=== PATIENT | female | born 1950 | race Caucasian/White ===

== ENCOUNTER 2017-11-07 11:07 | Inpatient (IN) | payer OTHER, MEDICAID, MEDICARE ==
[~2017-11-07] VITALS: Ht 162.6 cm; Wt 68.0 kg
[~2017-11-07 11:07] MED LIST: ACCU40TA PO; ALLO300T2 PO; ATOR40TA16 PO; LEVO.075 PO; PROZ40CA PO; VERA1TAB17 PO
[2017-11-07] MEDS ORDERED: GLYCOPYRROLATE 1 MG/5 ML SYRINGE IV PUSH ONE (12:00)
[2017-11-07] MEDS ORDERED: PROPOFOL 200 MG/20 ML AMP IV ONE (12:00)
[2017-11-07] MEDS ORDERED: PHENYLEPH/NS 1000 MCG/10 ML SYR IV ONE (12:00)
[2017-11-07] MEDS ORDERED: ONDANSETRON HCL 4 MG/2 ML VIAL IV ONE (12:00)
[2017-11-07] MEDS ORDERED: NEOSTIGMINE 5 MG/5 ML SYRINGE IV PUSH ONE (12:00)
[2017-11-07] MEDS ORDERED: LIDOCAINE HCL 1% PF 5 ML SYRINGE OTHER ONE (12:00)
[2017-11-07] MEDS ORDERED: DEXAMETHASONE SOD PHOS 4 MG/ML VIAL IV ONE (12:00)
[2017-11-07] MEDS ORDERED: ePHEDrine/NS 25 MG/5 ML SYRINGE IV ONE (12:00)
[2017-11-07] MEDS ORDERED: SODIUM CHLORIDE 0.9% 10 ML VIAL IV ONE (12:00)
[2017-11-07] MEDS ORDERED: VECURONIUM BROMIDE 20 MG VIAL IV ONE (12:00)
[2017-11-07] MEDS ORDERED: ROCURONIUM INJ 50 MG/5 ML SYRINGE IV PUSH ONE (12:00)
[2017-11-07] MEDS ORDERED: NORMOSOL R INJ 2,000 ML IV ONE (12:00)
[2017-11-07] MEDS ORDERED: POVIDONE IODINE 5% (ANTISEPSIS KIT) 4 APPLICATIONS EACH NARE PRN (12:15)
[2017-11-07] MEDS ORDERED: METOPROLOL TARTRATE 25 MG TAB PO PRN (12:15)
[2017-11-07] MEDS ORDERED: SODIUM CHLORID 0.9% 500 ML IV PRN (12:15)
[2017-11-07] MEDS ORDERED: CHLORHEXIDINE GLUCONATE 2 % 1 PACK (2 CLOTHS) TOPICAL PRN (12:15)
[2017-11-07] MEDS ORDERED: LACTATED RINGER'S 1000 ML IV PRN (12:15)
[2017-11-07] MEDS ORDERED: ceFAZolin 2 GM PREMIX 50 ML IV SCH (12:30)
[2017-11-07 13:10] LABS: PROTHROMBIN TIME - PATIENT 10.5 SEC (9.8-11.6)
[2017-11-07] MEDS ORDERED: FAMOTIDINE 20 MG/2 ML VIAL ONE (13:41)
[2017-11-07] MEDS ORDERED: ACETAMINOPHEN 1000 MG/100 ML 0 ML IV ONE (13:41)
[2017-11-07] MEDS ORDERED: FUROSEMIDE 40 MG/4 ML VIAL ONE ×2 (13:56→19:16)
--- NOTE | 2017-11-07 17:14 | EKG ---
Date Performed: 11/07/2017 Time Performed: 12:48:53 PTAGE: 66 years EKG: Sinus rhythm PREVIOUS TRACING : 03/01/2016 18.53 Since the previous tracing, no significant change not ed DOCTOR: Tj Talavera Interpretating Date/Time 11/07/2017 17:13:54
[2017-11-07] MEDS ORDERED: MORPHINE SULFATE 4 MG/ML INJ IV PUSH PRN (18:30)
[2017-11-07] MEDS ORDERED: SUGAMMADEX SODIUM 200 MG/2 ML VIAL IV PUSH ONE (18:47)
[2017-11-07] MEDS ORDERED: DO NOT ADM ANY ANTICOAGULANT DRUGS PRN (19:08)
[2017-11-07] MEDS ORDERED: MIDAZOLAM HCL 2 MG/2 ML VIAL ONE (19:17)
[2017-11-07] MEDS ORDERED: ONDANSETRON HCL 4 MG/2 ML VIAL ONE (19:17)
[2017-11-07] MEDS ORDERED: *morphine SULFATE 4 MG/ML PERIprocedure ONLY ONE ×2 (19:18→20:02)
[2017-11-07 19:39] LABS: AUTOMATED NEUTROPHIL # 18.9 TH/MM3 (1.8-7.7); BASOPHIL # 0.1 TH/MM3 (0-0.2); BASOPHIL % 0.3 % (0.0-2.0); EOSINOPHIL # 0.1 TH/MM3 (0-0.4); EOSINOPHIL % 0.5 % (0.0-4.0); HEMOGLOBIN 12.1 GM/DL (11.6-15.3); LYMPH % 5.9 % (9.0-44.0); LYMPHOCYTE # 1.2 TH/MM3 (1.0-4.8); MEAN CELL VOLUME 96.7 FL (80.0-100.0); MEAN CORPUSCULAR HEMOGLOBIN 31.5 PG (27.0-34.0); MEAN CORPUSCULAR HGB CONC 32.6 % (32.0-36.0); MEAN PLATELET VOLUME 7.2 FL (7.0-11.0); MONO % 2.8 % (0.0-8.0); MONOCYTE # 0.6 TH/MM3 (0-0.9); NEUT % 90.5 % (16.0-70.0); PLATELET COUNT 277 TH/MM3 (150-450); RED BLOOD COUNT 3.83 MIL/MM3 (4.00-5.30); RED CELL DISTRIBUTION WIDTH 15.5 % (11.6-17.2); WHITE BLOOD COUNT 20.9 TH/MM3 (4.0-11.0)
[2017-11-07] MEDS ORDERED: PROMETHAZINE INJ 25 MG/ML VIAL ONE (19:39)
[2017-11-07] MEDS ORDERED: LORazepam 2 MG/ML VIAL ONE (19:46)
--- NOTE | 2017-11-07 19:49 | RADRPT ---
EXAM DATE: 11/07/2017 7:29 PM EDT AGE/SEX: 66 years / Female INDICATIONS: Central line placement. CLINICAL DATA: This is the patient's subsequent encounter. Patient reports that signs and symptoms h ave been present for 1 week and indicates a pain score of Nonresponsive. MEDICAL/SURGICAL HISTORY: Hypertension. Non-responsive. COMPARISON: [facility], CHEST SINGLE AP, 03/01/2016. . FINDINGS: A right jugular line is noted and the tip overlies the expected location of the right atrium. There i s streaky infiltrate in the left lower lobe. I do not see a pneumothorax. Patchy lucency overlying th e right chest soft tissues may be related to subcutaneous air or artifact external to the patient. CONCLUSION: Subcutaneous air versus artifact external to the patient overlies the right upper quadrant/lateral th oracic soft tissues. I do not see a pneumothorax. Patchy left lower lobe infiltrate or atelectasis. Electronically signed by: Avery Malik MD 11/07/2017 7:47 PM EDT
[2017-11-07 20:00] LABS: BICARBONATE 17.3 MEQ/L (21.0-32.0); CALCIUM 8.7 MG/DL (8.5-10.1); CREATININE 2.55 MG/DL (0.50-1.00)
[2017-11-07] MEDS: SODIUM CHLOR 0.9% 1000 ML INJ 1,000 ML IV SCH (20:00)
[2017-11-07] MEDS ORDERED: LORazepam 2 MG/ML VIAL IV ONE (20:00)
[2017-11-07] MEDS: PANTOPRAZOLE SODIUM 40 MG VIAL IV PUSH SCH (20:18)
[2017-11-07] MEDS ORDERED: SODIUM CHLOR 0.9% 1000 ML INJ 1,000 ML IV ONE (21:00)
[2017-11-07 22:10] VITALS: BP 130/62; PULSE 84; RESP 20; TEMP 97.4; O2SAT 95
[2017-11-07] MEDS: DOCUSATE SODIUM 100 MG CAP PO SCH (22:30)
[2017-11-08] VITALS: BP 110/58; PULSE 93; RESP 20; TEMP 97.7; O2SAT 97
[2017-11-08] MEDS: SODIUM CHLOR 0.9% 1000 ML INJ 1,000 ML IV SCH ×4 (01:10→18:33)
[2017-11-08] MEDS: MORPHINE SULFATE 4 MG/ML INJ IV PUSH PRN ×4 (03:30→18:34)
[2017-11-08] MEDS: LEVOTHYROXINE SODIUM 75 MCG TAB PO SCH (04:37)
[2017-11-08 05:02] VITALS: BP 130/53; PULSE 82; RESP 18; TEMP 98.2; O2SAT 98
[2017-11-08] MEDS ORDERED: SODIUM CHLOR 0.9% 1000 ML INJ 1,000 ML IV ONE (06:45)
[2017-11-08 08:00] VITALS: BP 127/61; PULSE 91; RESP 17; TEMP 98; O2SAT 95
[2017-11-08] MEDS ORDERED: ALLOPURINOL 300 MG TAB PO SCH (09:00)
[2017-11-08] MEDS: ATORVASTATIN 40 MG TAB PO SCH (09:24)
[2017-11-08] MEDS: DOCUSATE SODIUM 100 MG CAP PO SCH ×2 (09:24→19:56)
[2017-11-08] MEDS: FLUoxetine HCL 20 MG CAP PO SCH (09:24)
[2017-11-08] MEDS: VERAPAMIL HCL 240 MG SUSTAINED RELEASE TAB PO SCH (09:25)
[2017-11-08] MEDS: LISINOPRIL 20 MG TAB PO SCH (09:25)
[2017-11-08 10:48] LABS: HEMATOCRIT 32.8 % (35.0-46.0); HEMOGLOBIN 10.6 GM/DL (11.6-15.3); MEAN CELL VOLUME 98.8 FL (80.0-100.0); MEAN CORPUSCULAR HEMOGLOBIN 31.8 PG (27.0-34.0); MEAN CORPUSCULAR HGB CONC 32.2 % (32.0-36.0); MEAN PLATELET VOLUME 7.7 FL (7.0-11.0); PLATELET COUNT 219 TH/MM3 (150-450); RED BLOOD COUNT 3.32 MIL/MM3 (4.00-5.30); RED CELL DISTRIBUTION WIDTH 16.2 % (11.6-17.2); WHITE BLOOD COUNT 15.1 TH/MM3 (4.0-11.0)
[2017-11-08 11:42] LABS: BICARBONATE 18.9 MEQ/L (21.0-32.0); CALCIUM 7.6 MG/DL (8.5-10.1); CREATININE 2.97 MG/DL (0.50-1.00)
[2017-11-08 12:00] VITALS: BP 112/56; PULSE 91; RESP 18; TEMP 97.8; O2SAT 98
--- NOTE | 2017-11-08 12:16 | HHI.PR ---
Subjective Patient symptoms today pt was seen at the bedside today. POD#1 s/p right robotic radical nephrectomy. No acute events overnight. VS are stable as well as labs, Naomi is managed well with pain meds, she does have right sided abd pain ecpecially when moves and cought which is understandable post surgery. On Clear liquid diet, tolerates it well Objective Vital Signs Vital Signs Date Time Temp Pulse Resp B/P (MAP) Pulse Ox O2 Delivery O2 Flow Rate FiO2 11/08/17 08:00 98.0 91 17 127/61 (83) 95 11/08/17 05:02 98.2 82 18 130/53 (78) 98 11/08/17 03:35 20 11/08/17 00:00 97.7 93 20 110/58 (75) 97 11/07/17 22:10 97.4 84 20 130/62 (84) 95 11/07/17 21:00 81 19 127/60 (82) 95 Nasal Cannula 3 11/07/17 20:30 80 21 128/58 (81) 97 Nasal Cannula 3 11/07/17 20:00 97.9 77 24 138/61 (86) 95 Nasal Cannula 3 11/07/17 19:45 75 25 143/67 (92) 97 Nasal Cannula 3 11/07/17 19:30 73 24 141/63 (89) 98 Nasal Cannula 3 11/07/17 19:15 74 20 136/62 (86) 100 Nasal Cannula 3 146/54 (84) 11/07/17 19:06 97.6 79 20 127/59 (81) 92 Nasal Cannula 3 160/58 (92) Intake & Output 11/08/17 11/08/17 07:00 19:00 Intake Total 2300 ml Output Total 270 ml Balance 2030 ml Intake Oral 0 ml IV Total 2300 ml Output Urine Total 270 ml Result Diagram: 11/08/17 0955 11/08/17 0955 Objective Remarks NAD RRR Clear lungs Abd soft, slightly distended post/op. mild tenderness on a right. Incisions healing well Stout is in place draining well clear yellow urine Medications and IVs Current Medications Medications (Trade) Dose Ordered Sig/Teressa Route Start Time Stop Time Status Last Admin Lactated Ringer's 1,000 ml @ 30 mls/hr Q24H PRN IV 11/07/17 12:15 11/10/17 12:14 11/07/17 13:17 Sodium Chloride 500 ml @ 30 mls/hr [id number] PRN IV 11/07/17 12:15 11/10/17 12:14 (Lopressor) 25 mg CALL CENTER TEAM LEADER PRN PO 11/07/17 12:15 11/10/17 12:14 (Betadine 5% Antisepsis Kit) 1 applic [employer] C[employer] TE[employer] LEADER PRN EACH NARE 11/07/17 12:15 11/10/17 12:14 11/07/17 13:17 (Chlorhexidine 2% Cloth) 3 pack [employer] C[employer] TE[employer] LEADER PRN TOPICAL 11/07/17 12:15 11/10/17 12:14 11/07/17 13:17 Cefazolin Sodium/ Dextrose 50 ml @ 150 mls/hr CALL C[employer] TE[employer] LEADER IV 11/07/17 12:30 11/10/17 12:29 11/07/17 15:11 (Colace) 100 mg BID PO 11/07/17 21:00 11/08/17 09:24 (Zofran Odt) 4 mg Q6HR PRN SL 11/07/17 18:30 (Protonix Inj) 40 mg Q24H IV PUSH 11/07/17 19:00 11/07/17 20:18 Cefazolin Sodium 1000 mg/Sodium Chloride 100 ml @ 200 mls/hr Q8H IV 11/07/17 23:00 11/08/17 05:59 Sodium Chloride 1,000 ml @ 150 mls/hr Q6H40M IV 11/07/17 18:30 11/08/17 01:10 (Lipitor) 40 mg DAILY PO 11/08/17 09:00 11/08/17 09:24 (Synthroid) 75 mcg DAILY@0600 PO 11/08/17 06:00 11/08/17 04:37 (Prinivil) 40 mg DAILY PO 11/08/17 09:00 11/08/17 09:25 (Isoptin Sr) 240 mg DAILY PO 11/08/17 09:00 11/08/17 09:25 (PROzac) 40 mg DAILY PO 11/08/17 09:00 11/08/17 09:24 ([facility] Nursing Information) ALL NURSING DEPARTME... UNSCH PRN .XX 11/07/17 19:08 11/08/17 19:07 (Morphine Inj) 4 mg Q3H PRN IV PUSH 11/07/17 21:15 11/08/17 09:24 (Zyloprim) 200 mg DAILY PO 11/09/17 09:00 Assessment and Plan Assessment and Plan 66y.o F s/p Rt robotic radical nephrectomy yesterday - Continue current management - Labs at AM - Pain control prn - OOB to chair / ambulate with assistance - Keep stout in, monitor I&O - IS when in bed - Possibly advance diet tomorrow Discharge Planning pending Drake Zealya Nov 08, 2017 12:16
[2017-11-08 16:00] VITALS: BP 120/59; PULSE 88; RESP 18; TEMP 97.6; O2SAT 95
[2017-11-08] MEDS: PANTOPRAZOLE SODIUM 40 MG VIAL IV PUSH SCH (18:34)
[2017-11-08 20:00] VITALS: BP 109/50; PULSE 95; RESP 17; TEMP 97.9; O2SAT 95
[2017-11-09] VITALS: BP 100/58; PULSE 89; RESP 17; TEMP 97.2; O2SAT 95
[2017-11-09] MEDS: SODIUM CHLOR 0.9% 1000 ML INJ 1,000 ML IV SCH ×4 (00:55→20:49)
[2017-11-09] MEDS: MORPHINE SULFATE 4 MG/ML INJ IV PUSH PRN ×3 (00:55→17:57)
[2017-11-09] MEDS ORDERED: ceFAZolin 500 MG/NS 100 ML IV SCH ×2 (03:00)
[2017-11-09] MEDS: LEVOTHYROXINE SODIUM 75 MCG TAB PO SCH (04:25)
[2017-11-09 04:56] LABS: AUTOMATED NEUTROPHIL # 9.2 TH/MM3 (1.8-7.7); BASOPHIL % 0.2 % (0.0-2.0); EOSINOPHIL # 0.1 TH/MM3 (0-0.4); EOSINOPHIL % 1.1 % (0.0-4.0); HEMOGLOBIN 9.6 GM/DL (11.6-15.3); LYMPH % 15.8 % (9.0-44.0); MEAN CELL VOLUME 98.8 FL (80.0-100.0); MEAN CORPUSCULAR HEMOGLOBIN 32.6 PG (27.0-34.0); MEAN PLATELET VOLUME 7.7 FL (7.0-11.0); MONO % 11.9 % (0.0-8.0); MONOCYTE # 1.5 TH/MM3 (0-0.9); PLATELET COUNT 188 TH/MM3 (150-450); RED BLOOD COUNT 2.93 MIL/MM3 (4.00-5.30); RED CELL DISTRIBUTION WIDTH 15.8 % (11.6-17.2); WHITE BLOOD COUNT 12.9 TH/MM3 (4.0-11.0)
[2017-11-09 05:33] LABS: BICARBONATE 17.4 MEQ/L (21.0-32.0); CALCIUM 7.2 MG/DL (8.5-10.1); CREATININE 3.37 MG/DL (0.50-1.00)
[2017-11-09 05:53] LABS: TOTAL PROTEIN 5.6 GM/DL (6.4-8.2)
[2017-11-09 08:00] VITALS: BP 117/63; PULSE 81; RESP 17; TEMP 97.2; O2SAT 95
[2017-11-09] MEDS: LISINOPRIL 20 MG TAB PO SCH (11:02)
[2017-11-09] MEDS: ATORVASTATIN 40 MG TAB PO SCH (11:03)
[2017-11-09] MEDS: ALLOPURINOL 100 MG TAB PO SCH (11:03)
[2017-11-09] MEDS: FLUoxetine HCL 20 MG CAP PO SCH (11:03)
[2017-11-09] MEDS: VERAPAMIL HCL 240 MG SUSTAINED RELEASE TAB PO SCH (11:03)
[2017-11-09] MEDS: DOCUSATE SODIUM 100 MG CAP PO SCH ×2 (11:03→20:48)
[2017-11-09 12:00] VITALS: BP 128/59; PULSE 83; RESP 17; TEMP 97.7; O2SAT 95
--- NOTE | 2017-11-09 12:14 | MP ---
cc: Enoc Garcia MD DATE OF OPERATION: 11/07/2017 PREOPERATIVE DIAGNOSES: 1. Right 5 cm solid renal mass. 2. Right renal cyst. POSTOPERATIVE DIAGNOSES: 1. Right 5 cm solid renal mass. 2. Right renal cyst. PROCEDURE PERFORMED: Robotic-assisted laparoscopic right radical nephrectomy. SURGEON: Enoc Garcia MD ANESTHESIA: General. COMPLICATIONS: None. PREOPERATIVE ANTIBIOTICS: Ancef 2 grams IV. DRAINS: Andrea catheter. ESTIMATED BLOOD LOSS: 100 mL. FLUIDS: 1500 mL crystalloids. SPECIMENS: Right kidney. DISPOSITION: Stable to recovery room. INDICATION FOR PROCEDURE: The patient is a 66-year-old female with history of hypertension, who was found to have a 5 cm solid renal mass incidentally on her right kidney. She denied any symptoms at this time. Metastatic workup was negative. Treatment options were discussed and she elected to proceed with removal of her right kidney laparoscopically. After risks, benefits and alternatives were explained to the patient, including the anesthetic risks, risk of renal failure, dialysis, hernia, among others, she elected to proceed and informed consent was obtained. DETAILS OF PROCEDURE: The patient was properly identified, brought back to the operating room and placed supine on the operating table. Appropriate timeout was performed. Under direction of Anesthesiology, the patient was intubated and induced under general anesthetic. Preoperative antibiotics in the form of Ancef 2 grams IV were given 4 hours prior to the procedure. The patient was then placed in the left lateral decubitus position with right side up. All pressure points were padded. Prior to positioning, she did have a 16-Ukrainian Andrea catheter placed. At this time, she was then prepped and draped in normal sterile surgical fashion. Stab incision was made superior and lateral to the umbilicus on the patient's right-hand side. A Veress needle was then used to gain insufflation into the abdominal cavity. At this time, under direct visualization, I carefully passed the 12 mm long camera port with the 10-mm 0-degree laparoscopic port into the patient's abdominal cavity. The abdominal cavity was inspected. There were some adhesions in the anterior abdominal wall up by the liver due to her prior laparoscopic cholecystectomy procedure years ago. No evidence of any intra-abdominal injury was seen. At this time, the lower 8 mm robotic port was then placed under direct visualization, triangulated off of the camera port and approximately a handbreadth off of the ASIS. At this time, using laparoscopic scissors, I then took down the anterior abdominal adhesions with both a combination of blunt dissection and electrocautery. Once the adhesions were taken down, I then was able to place my other 8 mm robotic port 2 fingerbreadths below the subcostal margin. A 5 mm liver retractor port was then placed along the midline as well as two 12 mm materials assistant ports in the midline superior and inferior to the umbilicus. These were all placed under direct visualization. At this time, the robot was then brought into position and docked. I began by taking down the white line of Toldt from the colon, reflecting the colon medially. This exposed the retroperitoneum. I then kocherized the duodenum. At this time, the plane between the gonadal vein and IVC was easily identified. I then retracted the kidney towards the anterior abdominal wall and marched up the IVC to the insertion of the right gonadal vein. This was carefully dissected out circumferentially and taken with the robotic vessel sealer. I then continue to follow the IVC up cephalad until I came across the hilum. The patient had 1 single artery and vein. Each was taken separately with an endovascular GI stapler. The lateral and superior attachments were divided and removed. At this point, all that remained was the lower pole portion with the ureter intact. This was then divided with the robotic vessel sealer as well. At this point, the kidney was completely mobilized, it was then placed in the right colic gutter. The renal fossa and adrenal bed was carefully inspected. Electrocautery was then used to obtain hemostasis. Pressure in the abdomen was brought down to 7 mmHg. No evidence of any bleeding was seen. The liver appeared to be intact as well. Three grams of Juliet were then used for hemostatic purposes. The kidney was then placed in EndoCatch bag for later extraction. It was extracted through the right lower quadrant incision. It was closed in 2 layers with the peritoneum being closed with a 3-0 Vicryl and the fascia being closed with a 1-0 PDS. A second look was performed. The incision was free of bowel. No bleeding was seen. All ports were removed under direct visualization. Incisions were closed with 4-0 Monocryl and Dermabond. The patient was extubated and sent to recovery room in stable condition. She will be transferred to the floor for routine postoperative care. Sponge, needle and instrument count was correct at the end of the case. MD HERMAN Crouch/JEN , 11:13 AM , 12:12 PM
--- NOTE | 2017-11-09 13:46 | HHI.PR ---
Subjective Patient symptoms today Pt was seen at her room today. Sitting comfortably in chair. She had some soreness/pain at her abd overnight but mostly related to moving or coughing. no fever, occasionally has nausea, no BM yet, no flatus but admits burping and acid reflux. White count improving. Cr is trending up but her baseline is 1.9 and she is slightly dry post/op so currently on IV fluids 150ml/hr. Tolerates clear diet well. Objective Vital Signs Vital Signs Date Time Temp Pulse Resp B/P (MAP) Pulse Ox O2 Delivery O2 Flow Rate FiO2 11/09/17 12:00 97.7 83 17 128/59 (82) 95 11/09/17 08:00 97.2 81 17 117/63 (81) 95 11/09/17 00:00 97.2 89 17 100/58 (72) 95 11/08/17 20:00 97.9 95 17 109/50 (69) 95 11/08/17 16:00 97.6 88 18 120/59 (79) 95 Intake & Output 11/09/17 11/09/17 07:00 19:00 Intake Total 1340 ml Output Total 640 ml Balance 700 ml Intake Oral 240 ml IV Total 1100 ml Output Urine Total 640 ml Result Diagram: 11/09/17 04311/09/17 043 Objective Remarks NAD RRR Clear lungs Abd soft, slightly distended post/op. mild tenderness on a right. Stout is in place draining well clear yellow urine Medications and IVs Current Medications Medications (Trade) Dose Ordered Sig/Teressa Route Start Time Stop Time Status Last Admin Lactated Ringer's 1,000 ml @ 30 mls/hr Q24H PRN IV 11/07/17 12:15 11/10/17 12:14 11/07/17 13:17 Sodium Chloride 500 ml @ 30 mls/hr [id number] PRN IV 11/07/17 12:15 11/10/17 12:14 (Lopressor) 25 mg ENVIRONMENTAL AID PRN PO 11/07/17 12:15 11/10/17 12:14 (Betadine 5% Antisepsis Kit) 1 applic ENVIRONMENTAL AID PRN EACH NARE 11/07/17 12:15 11/10/17 12:14 11/07/17 13:17 (Chlorhexidine 2% Cloth) 3 pack ENVIRONMENTAL AID PRN TOPICAL 11/07/17 12:15 11/10/17 12:14 11/07/17 13:17 Cefazolin Sodium/ Dextrose 50 ml @ 150 mls/hr ENVIRONMENTAL AID IV 11/07/17 12:30 11/10/17 12:29 11/07/17 15:11 (Colace) 100 mg BID PO 11/07/17 21:00 11/09/17 11:03 (Zofran Odt) 4 mg Q6HR PRN SL 11/07/17 18:30 (Protonix Inj) 40 mg Q24H IV PUSH 11/07/17 19:00 11/08/17 18:34 Sodium Chloride 1,000 ml @ 150 mls/hr Q6H40M IV 11/07/17 18:30 11/09/17 00:55 (Lipitor) 40 mg DAILY PO 11/08/17 09:00 11/09/17 11:03 (Synthroid) 75 mcg DAILY@0600 PO 11/08/17 06:00 11/09/17 04:25 (Prinivil) 40 mg DAILY PO 11/08/17 09:00 11/09/17 11:02 (Isoptin Sr) 240 mg DAILY PO 11/08/17 09:00 11/09/17 11:03 (PROzac) 40 mg DAILY PO 11/08/17 09:00 11/09/17 11:03 (Morphine Inj) 4 mg Q3H PRN IV PUSH 11/07/17 21:15 11/09/17 00:55 (Zyloprim) 200 mg DAILY PO 11/09/17 09:00 11/09/17 11:03 Assessment and Plan Assessment and Plan 66y.o F s/p Rt robotic radical nephrectomy day 2 - Continue current management - Labs at AM - Pain control prn. IV fluids - OOB to chair / ambulate with assistance - Keep stout in, monitor I&O - IS when in bed - Possibly advance diet once start passing flatus Discharge Planning pending Drake Zelaya Nov 09, 2017 13:46
[2017-11-09 16:00] VITALS: BP 108/57; PULSE 87; RESP 17; TEMP 97.2; O2SAT 96
[2017-11-09] MEDS: PANTOPRAZOLE SODIUM 40 MG VIAL IV PUSH SCH (17:56)
[2017-11-09 20:00] VITALS: BP 130/60; PULSE 100; RESP 19; TEMP 97.8; O2SAT 95
[2017-11-10] VITALS: BP 125/68; PULSE 97; RESP 19; TEMP 97.4; O2SAT 95
[2017-11-10] MEDS: LEVOTHYROXINE SODIUM 75 MCG TAB PO SCH (05:09)
[2017-11-10] MEDS: SODIUM CHLOR 0.9% 1000 ML INJ 1,000 ML IV SCH ×3 (05:11→21:02)
[2017-11-10] MEDS: ONDANSETRON ODT 4 MG TAB SL PRN ×3 (07:58→21:02)
[2017-11-10 08:00] VITALS: BP 181/66; PULSE 99; RESP 18; TEMP 97.6; O2SAT 96
[2017-11-10 08:01] LABS: BICARBONATE 15.1 MEQ/L (21.0-32.0); CALCIUM 7.4 MG/DL (8.5-10.1); CREATININE 3.21 MG/DL (0.50-1.00)
[2017-11-10 08:17] LABS: CALCIUM-PROTEIN CORRECTED 7.7 MG/DL (8.5-10.1); TOTAL PROTEIN 6.5 GM/DL (6.4-8.2)
[2017-11-10 08:47] VITALS: BP 144/68
[2017-11-10] MEDS: FLUoxetine HCL 20 MG CAP PO SCH (09:22)
[2017-11-10] MEDS: DOCUSATE SODIUM 100 MG CAP PO SCH ×2 (09:22→21:02)
[2017-11-10] MEDS: VERAPAMIL HCL 240 MG SUSTAINED RELEASE TAB PO SCH (09:22)
[2017-11-10] MEDS: ALLOPURINOL 100 MG TAB PO SCH (09:23)
[2017-11-10] MEDS: LISINOPRIL 20 MG TAB PO SCH (09:23)
[2017-11-10] MEDS: ATORVASTATIN 40 MG TAB PO SCH (09:23)
[2017-11-10] MEDS: PANTOPRAZOLE SOD 40 MG DELAYED RELEASE TAB PO SCH (09:30)
[2017-11-10 12:00] VITALS: BP 153/68; PULSE 102; RESP 18; TEMP 97.6; O2SAT 96
--- NOTE | 2017-11-10 12:42 | HHI.PR ---
Subjective Patient symptoms today Pt was seen today resting comfortably in bed. no acute events overnight. no fever. pain is improving and she states its much better today. she continues to have acid reflux and burps frequently, feels a little nauseous. Urine is clear yellow. No BM yet but admits passing a little flatus Objective Vital Signs Vital Signs Date Time Temp Pulse Resp B/P (MAP) Pulse Ox O2 Delivery O2 Flow Rate FiO2 11/10/17 08:47 144/68 (93) 11/10/17 08:00 97.6 99 18 181/66 (104) 96 11/10/17 00:00 97.4 97 19 125/68 (87) 95 11/09/17 20:00 97.8 100 19 130/60 (83) 95 11/09/17 16:00 97.2 87 17 108/57 (74) 96 Intake & Output 11/10/17 11/10/17 07:00 19:00 Intake Total 940 ml Output Total 600 ml Balance 340 ml Intake Oral 240 ml IV Total 700 ml Output Urine Total 600 ml Result Diagram: 11/09/17 0432 11/10/17 0715 Objective Remarks NAD RRR Clear lungs Abd soft, slightly distended, mild tenderness on exam. Incisions healed well Stout is in place draining well clear yellow urine Medications and IVs Current Medications Medications (Trade) Dose Ordered Sig/Teressa Route Start Time Stop Time Status Last Admin (Colace) 100 mg BID PO 11/07/17 21:00 11/10/17 09:22 (Zofran Odt) 4 mg Q6HR PRN SL 11/07/17 18:30 11/10/17 07:58 Sodium Chloride 1,000 ml @ 150 mls/hr Q6H40M IV 11/07/17 18:30 11/10/17 05:11 (Lipitor) 40 mg DAILY PO 11/08/17 09:00 11/10/17 09:23 (Synthroid) 75 mcg DAILY@0600 PO 11/08/17 06:00 11/10/17 05:09 (Prinivil) 40 mg DAILY PO 11/08/17 09:00 11/10/17 09:23 (Isoptin Sr) 240 mg DAILY PO 11/08/17 09:00 11/10/17 09:22 (PROzac) 40 mg DAILY PO 11/08/17 09:00 11/10/17 09:22 (Morphine Inj) 4 mg Q3H PRN IV PUSH 11/07/17 21:15 11/09/17 17:57 (Zyloprim) 200 mg DAILY PO 11/09/17 09:00 11/10/17 09:23 (Protonix) 40 mg DAILY PO 11/10/17 09:00 11/10/17 09:30 Assessment and Plan Assessment and Plan 66y.o F s/p Rt robotic radical nephrectomy day 3 - Continue current management - Labs at AM - Pain control prn. IV fluids - OOB to chair / ambulate with assistance - Remove stout today, monitor I&O after - Advance diet. Discharge Planning pending Drake Zelaya Nov 10, 2017 12:42
[2017-11-10 16:00] VITALS: BP 162/69; PULSE 97; RESP 18; TEMP 97.7; O2SAT 96
--- NOTE | 2017-11-10 16:41 | HHI.FF ---
Face to Face Verification Diagnosis: (1) Renal cell carcinoma Home Health Nursing Order: Medical education Nursing assessment with vital signs I have seen patient Nelly Shabazz on 11/10/17. My clinical findings support the need for the requested home health care services because: Limited ability to care for self I certify that my clinical findings support that this patient is homebound because: Post-op weakness Enoc Garcia MD Nov 10, 2017 16:41
[2017-11-10] MEDS ORDERED: TRAM50 PO (16:42)
[2017-11-10] MEDS ORDERED: traMADol HCL 50 MG TAB PO PRN (16:45)
[2017-11-10] MEDS: ACETAMINOPHEN 1000 MG/100 ML 100 ML IV SCH (17:59)
[2017-11-10 20:25] VITALS: BP 147/69; PULSE 98; RESP 17; TEMP 97.9; O2SAT 97
[2017-11-10] MEDS ORDERED: FAMOTIDINE 20 MG TAB PO SCH (21:00)
[2017-11-11 00:08] VITALS: BP 151/69; PULSE 91; RESP 16; TEMP 97.9; O2SAT 94
[2017-11-11] MEDS: ACETAMINOPHEN 1000 MG/100 ML 100 ML IV SCH ×2 (00:19→04:42)
[2017-11-11] MEDS: LEVOTHYROXINE SODIUM 75 MCG TAB PO SCH (04:41)
[2017-11-11] MEDS: ONDANSETRON ODT 4 MG TAB SL PRN ×2 (04:41→18:12)
[2017-11-11] MEDS: SODIUM CHLOR 0.9% 1000 ML INJ 1,000 ML IV SCH ×2 (04:43→17:25)
[2017-11-11 05:50] LABS: AUTOMATED NEUTROPHIL # 8.2 TH/MM3 (1.8-7.7); BASOPHIL # 0.1 TH/MM3 (0-0.2); BASOPHIL % 0.4 % (0.0-2.0); EOSINOPHIL # 0.6 TH/MM3 (0-0.4); EOSINOPHIL % 5.1 % (0.0-4.0); HEMATOCRIT 30.4 % (35.0-46.0); HEMOGLOBIN 9.9 GM/DL (11.6-15.3); LYMPH % 16.5 % (9.0-44.0); LYMPHOCYTE # 2.1 TH/MM3 (1.0-4.8); MEAN CELL VOLUME 98.6 FL (80.0-100.0); MEAN CORPUSCULAR HEMOGLOBIN 32.1 PG (27.0-34.0); MEAN CORPUSCULAR HGB CONC 32.5 % (32.0-36.0); MEAN PLATELET VOLUME 7.8 FL (7.0-11.0); MONO % 12.2 % (0.0-8.0); MONOCYTE # 1.5 TH/MM3 (0-0.9); NEUT % 65.8 % (16.0-70.0); PLATELET COUNT 205 TH/MM3 (150-450); RED BLOOD COUNT 3.08 MIL/MM3 (4.00-5.30); RED CELL DISTRIBUTION WIDTH 15.8 % (11.6-17.2); WHITE BLOOD COUNT 12.4 TH/MM3 (4.0-11.0)
[2017-11-11 06:10] LABS: BICARBONATE 15.2 MEQ/L (21.0-32.0); CALCIUM 7.4 MG/DL (8.5-10.1); CREATININE 2.77 MG/DL (0.50-1.00)
[2017-11-11 06:23] LABS: CALCIUM-PROTEIN CORRECTED 8.1 MG/DL (8.5-10.1); TOTAL PROTEIN 5.9 GM/DL (6.4-8.2)
[2017-11-11 08:00] VITALS: BP 135/60; PULSE 85; RESP 16; TEMP 97.3; O2SAT 97
[2017-11-11] MEDS: ALLOPURINOL 100 MG TAB PO SCH (08:47)
[2017-11-11] MEDS: LISINOPRIL 20 MG TAB PO SCH (08:47)
[2017-11-11] MEDS: VERAPAMIL HCL 240 MG SUSTAINED RELEASE TAB PO SCH (08:47)
[2017-11-11] MEDS: DOCUSATE SODIUM 100 MG CAP PO SCH (08:47)
[2017-11-11] MEDS: PANTOPRAZOLE SOD 40 MG DELAYED RELEASE TAB PO SCH (08:48)
[2017-11-11] MEDS: FLUoxetine HCL 20 MG CAP PO SCH (08:48)
[2017-11-11] MEDS: ATORVASTATIN 40 MG TAB PO SCH (08:48)
[2017-11-11] MEDS: ACETAMINOPHEN 500 MG CPLT PO SCH ×2 (11:24→17:47)
[2017-11-11 12:00] VITALS: BP 111/69; PULSE 87; RESP 18; TEMP 97.3; O2SAT 97
[2017-11-11 16:00] VITALS: BP 148/65; PULSE 82; RESP 17; TEMP 97.5; O2SAT 97
--- NOTE | 2017-11-11 16:15 | HHI.PR ---
Subjective Patient symptoms today Doing well, no issues overnight. Cr improved to 2.77. No nausea, +Flatus, no BM Objective Vital Signs Vital Signs Date Time Temp Pulse Resp B/P (MAP) Pulse Ox O2 Delivery O2 Flow Rate FiO2 11/11/17 12:00 97.3 87 18 111/69 (83) 97 11/11/17 08:00 97.3 85 16 135/60 (85) 97 11/11/17 00:08 97.9 91 16 151/69 (96) 94 11/10/17 20:25 97.9 98 17 147/69 (95) 97 11/10/17 18:17 18 Intake & Output 11/11/17 11/11/17 07:00 19:00 Intake Total 480 ml Output Total 800 ml Balance -320 ml Intake Oral 480 ml Output Urine Total 800 ml Result Diagram: 11/11/17 0530 11/11/17 0530 Objective Remarks NAD, AAOx3 Resp NL Abd soft, mild tenderness, Incisions healing well Medications and IVs Current Medications Medications (Trade) Dose Ordered Sig/Teressa Route Start Time Stop Time Status Last Admin (Colace) 100 mg BID PO 11/07/17 21:00 11/11/17 08:47 (Zofran Odt) 4 mg Q6HR PRN SL 11/07/17 18:30 11/11/17 04:41 Sodium Chloride 1,000 ml @ 100 mls/hr Q10H IV 11/07/17 18:30 11/11/17 04:43 (Lipitor) 40 mg DAILY PO 11/08/17 09:00 11/11/17 08:48 (Synthroid) 75 mcg DAILY@0600 PO 11/08/17 06:00 11/11/17 04:41 (Prinivil) 40 mg DAILY PO 11/08/17 09:00 11/11/17 08:47 (Isoptin Sr) 240 mg DAILY PO 11/08/17 09:00 11/11/17 08:47 (PROzac) 40 mg DAILY PO 11/08/17 09:00 11/11/17 08:48 (Zyloprim) 200 mg DAILY PO 11/09/17 09:00 11/11/17 08:47 (Protonix) 40 mg DAILY PO 11/10/17 09:00 11/11/17 08:48 (Ultram) 50 mg Q6H PRN PO 11/10/17 16:45 (Tylenol) 1,000 mg Q6H PO 11/11/17 12:00 Assessment and Plan Assessment and Plan 66y.o F s/p Rt robotic radical nephrectomy day 4 - Pain control - Regular diet - Cr improved - OOB to chair / ambulate with assistance - Voiding well - Discharge home today with followup in Urology clinic in 1-2 weeks Discharge Planning pending Amaury Pickens MD Nov 11, 2017 16:15
--- NOTE | 2017-11-11 16:20 | HHI.DS ---
Discharge Summary Admission Date Nov 07, 2017 at 11:40 Discharge Date: Nov 11, 2017 Admitting Diagnosis (1) Renal cell carcinoma ICD Codes: C64.9 - Malignant neoplasm of unspecified kidney, except renal pelvis Procedures Right robotic radical nephrectomy Brief History 66yo female with right renal mass CBC/BMP: 11/11/17 0530 11/11/17 0530 Significant Findings Laboratory Tests Test 11/09/17 04:32 11/10/17 07:15 11/11/17 05:30 White Blood Count 12.9 TH/MM3 (4.0-11.0) 12.4 TH/MM3 (4.0-11.0) Red Blood Count 2.93 MIL/MM3 (4.00-5.30) 3.08 MIL/MM3 (4.00-5.30) Hemoglobin 9.6 GM/DL (11.6-15.3) 9.9 GM/DL (11.6-15.3) Hematocrit 29.0 % (35.0-46.0) 30.4 % (35.0-46.0) Neutrophils (%) (Auto) 71.0 % (16.0-70.0) Monocytes (%) (Auto) 11.9 % (0.0-8.0) 12.2 % (0.0-8.0) Neutrophils # (Auto) 9.2 TH/MM3 (1.8-7.7) 8.2 TH/MM3 (1.8-7.7) Monocytes # (Auto) 1.5 TH/MM3 (0-0.9) 1.5 TH/MM3 (0-0.9) Blood Urea Nitrogen 37 MG/DL (7-18) 34 MG/DL (7-18) 31 MG/DL (7-18) Creatinine 3.37 MG/DL (0.50-1.00) 3.21 MG/DL (0.50-1.00) 2.77 MG/DL (0.50-1.00) Total Protein 5.6 GM/DL (6.4-8.2) 5.9 GM/DL (6.4-8.2) Calcium Level 7.2 MG/DL (8.5-10.1) 7.4 MG/DL (8.5-10.1) 7.4 MG/DL (8.5-10.1) Chloride Level 112 MEQ/L (98-107) 115 MEQ/L (98-107) 118 MEQ/L (98-107) Carbon Dioxide Level 17.4 MEQ/L (21.0-32.0) 15.1 MEQ/L (21.0-32.0) 15.2 MEQ/L (21.0-32.0) Estimat Glomerular Filtration Rate 14 ML/MIN (>89) 14 ML/MIN (>89) 17 ML/MIN (>89) Protein Corrected Calcium 8.0 MG/DL (8.5-10.1) 7.7 MG/DL (8.5-10.1) 8.1 MG/DL (8.5-10.1) Eosinophils (%) (Auto) 5.1 % (0.0-4.0) Eosinophils # (Auto) 0.6 TH/MM3 (0-0.4) Hospital Course Patient underwent right robotic radical nephrectomy on 11/07/17. Patient did well post-operatively and progressed slowly. Her pain was controlled tolerating diet, and voiding well as well as ambulating. Her creatinine initially bettye post -op, however improved to 2.77 on day of discharge. Patient to followup with Dr. Garcia in Urology clinic in 1-2 weeks. Pt Condition on Discharge: Good Discharge Disposition: Discharge Home Discharge Instructions DIET: Follow Instructions for: As Tolerated, No Restrictions Activities you can perform: Regular-No Restrictions, Shower Only-No Bath New Medications: Tramadol (Ultram) 50 Mg Tab 50 MG PO Q6H PRN for PAIN SCALE 5 TO 10 for 5 Days, #20 TAB Amaury Pickens MD Nov 11, 2017 16:20
[2017-11-11] MEDS ORDERED: traMADol HCL 50 MG TAB PO PRN (16:45)
== END 2017-11-11 19:14 | disposition home or self-care (01) | DRG 658 ==
LOC: HSDI 11:40 → N07B 22:02
PROVIDERS: ADMIT Urology; ATTEND Urology
PROC: 8E0W4CZ Robotic Assisted Procedure of Trunk Region, Percutaneous Endoscopic Approach (ICD-10-PCS; 2017-11-07)
PROC: 0TT04ZZ Resection of Right Kidney, Percutaneous Endoscopic Approach (ICD-10-PCS; principal; 2017-11-07 14:10)
DX: C64.1 Malignant neoplasm of right kidney, except renal pelvis (principal); N28.1 Cyst of kidney, acquired; I12.9 Hypertensive chronic kidney disease with stage 1 through stage 4 chronic kidney disease, or unspecified chronic kidney disease; K21.9 Gastro-esophageal reflux disease without esophagitis; E89.0 Postprocedural hypothyroidism; E78.5 Hyperlipidemia, unspecified; I05.0 Rheumatic mitral stenosis; G47.30 Sleep apnea, unspecified; N18.9 Chronic kidney disease, unspecified; Z88.5 Allergy status to narcotic agent
CPT/HCPCS: 36415; 71045; 80048; 84155; 85025; 85027; 85610; 86850; 86900; 86901; 86920; 88307; 93005; 94150; C9113; J0131; J0690; J1100; J1940; J2060; J2250; J2270; J2370; J2405; J2550; J2710; J3010; J7030; J7120

== ENCOUNTER 2017-11-16 23:33 | Emergency (ER) | payer MEDICAID, MEDICARE, OTHER ==
[~2017-11-16] VITALS: Ht 162.6 cm; Wt 124.5 kg
[~2017-11-16 23:33] MED LIST changes: +TRAM50 PO
[2017-11-16 23:36] VITALS: BP 199/89; PULSE 79; RESP 17; TEMP 98.1; O2SAT 97
--- NOTE | 2017-11-16 23:56 | PD ---
HPI Chief Complaint: Wound/Suture/Staple Re-Check Time Seen by Provider: 23:56 Travel History International Travel<30 days: No Contact w/Intl Traveler<30days: No Traveled to known affect area: No History of Present Illness HPI 66-year-old female came to the emergency room with history of status post right nephrectomy secondary to renal cell carcinoma. The surgery was done by Dr. Garcia and she went home a few days ago. She has not been started on any chemotherapy or radiation therapy. She has a home health care nurse coming to check on her and check the wound. Patient says that so far everything was going well and today she was slowly walking when she felt some shooting pain in the incision area and noticed that it started to drain. This started this afternoon and since then it has been continuously draining. She has changed the dressing multiple times. She came to the emergency room to be evaluated. No history of fever or chills. Vital signs are otherwise within acceptable limits. Pain has not substantially increased then what it has been so far postop. [facility] Past Medical History Narrative Medical List of her past medical, surgical, social and family history reviewed from the nursing note. 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 SULEMA, APPY) AICD: No Cardiac Surgery: No Section: Yes Cholecystectomy: Yes Ear Surgery: No Endocrine Surgery: No Eye Surgery: No Genitourinary Surgery: No Gynecologic Surgery: Yes (C SECTION, HYSTERECTOMY ) Hysterectomy: Yes Joint Replacement: No Oral Surgery: Yes (TONSILLECTOMY) Pacemaker: No Thoracic Surgery: Yes (BREAST BX BILAT- BENIGN) Other Surgery: Yes (THYROIDECTOMY) Social History Alcohol Use: Yes ("sometimes") Tobacco Use: No Substance Use: No Allergies-Medications (Allergen,Severity, Reaction): Coded Allergies: acetaminophen (Unverified Allergy, Severe, ITCH, RASH, 6/14/18) codeine (Verified Allergy, Severe, ITCH, RASH, 11/16/17) Comments List of her allergies reviewed from the nursing note. Reported Meds & Prescriptions Reported Meds & Active Scripts Active Ultram (Tramadol HCl) 50 Mg Tab 50 Mg PO Q6H PRN 5 Days Reported Verapamil ER 24 HR (Verapamil HCl) 240 Mg Tab 240 Mg PO DAILY Synthroid (Levothyroxine Sodium) 75 Mcg Tab 75 Mcg PO DAILY Accupril (Quinapril HCl) 40 Mg Tab 40 Mg PO DAILY Prozac (Fluoxetine HCl) 40 Mg Cap 40 Mg PO DAILY Atorvastatin (Atorvastatin Calcium) 40 Mg Tab 40 Mg PO DAILY Allopurinol 300 Mg Tab 300 Mg PO DAILY Narrative Medication List of her home medications reviewed from the nursing note. Review of Systems Except as stated in HPI: all other systems reviewed are Neg Physical Exam Narrative GENERAL: Awake, alert, moderate distress, obese SKIN: Focused skin assessment warm/dry. Pale HEAD: Atraumatic. Normocephalic. EYES: Pupils equal and round. No scleral icterus. No injection or drainage. ENT: No nasal bleeding or discharge. Mucous membranes pink and moist. NECK: Trachea midline. No JVD. CARDIOVASCULAR: Regular rate and rhythm. No murmur appreciated. RESPIRATORY: No accessory muscle use. Clear to auscultation. Breath sounds equal bilaterally. GASTROINTESTINAL: Abdomen soft, non-tender, nondistended. Hepatic and splenic margins not palpable. The right sided abdominal wall incision appears to be clean and healing well except for the lateralmost part of the incision which is constantly draining serosanguineous fluid. The dressing overlying it is soaked with the fluid. The wound does not appear to be warm to touch or red. MUSCULOSKELETAL: No obvious deformities. No clubbing. No cyanosis. No edema. NEUROLOGICAL: Awake and alert. No obvious cranial nerve deficits. Motor grossly within normal limits. Normal speech. PSYCHIATRIC: Appropriate mood and affect; insight and judgment normal. Data Data Last Documented VS Orders Orders Basic Metabolic Panel (Bmp) (11/17/17 00:01) Complete Blood Count With Diff (11/17/17 00:01) Iv Access Insert/Monitor (11/17/17 00:01) Ecg Monitoring (11/17/17 00:01) Oximetry (11/17/17 00:01) Sodium Chloride 0.9% Flush (Ns Flush) (11/17/17 00:15) Wound Culture And Gram Stain (11/17/17 00:01) Urinalysis - C+S If Indicated (11/17/17 00:03) Type And Screen (11/17/17 00:03) ^ Saline Lock (11/17/17 00:06) Ct Abd/Pel W/O Iv Contrast (11/17/17 ) Clonidine (Catapres) (11/17/17 03:00) Ed Discharge Order (11/17/17 03:58) Labs Laboratory Tests Test 11/17/17 00:20 11/17/17 02:15 White Blood Count 10.4 TH/MM3 Red Blood Count 2.92 MIL/MM3 Hemoglobin 9.6 GM/DL Hematocrit 27.9 % Mean Corpuscular Volume 95.6 FL Mean Corpuscular Hemoglobin 33.0 PG Mean Corpuscular Hemoglobin Concent 34.5 % Red Cell Distribution Width 15.5 % Platelet Count 307 TH/MM3 Mean Platelet Volume 7.6 FL Neutrophils (%) (Auto) 62.9 % Lymphocytes (%) (Auto) 20.1 % Monocytes (%) (Auto) 10.1 % Eosinophils (%) (Auto) 6.7 % Basophils (%) (Auto) 0.2 % Neutrophils # (Auto) 6.5 TH/MM3 Lymphocytes # (Auto) 2.1 TH/MM3 Monocytes # (Auto) 1.1 TH/MM3 Eosinophils # (Auto) 0.7 TH/MM3 Basophils # (Auto) 0.0 TH/MM3 CBC Comment DIFF FINAL Differential Comment Blood Urea Nitrogen 23 MG/DL Creatinine 2.10 MG/DL Random Glucose 103 MG/DL Calcium Level 8.4 MG/DL Sodium Level 142 MEQ/L Potassium Level 4.0 MEQ/L Chloride Level 110 MEQ/L Carbon Dioxide Level 22.8 MEQ/L Anion Gap 9 MEQ/L Estimat Glomerular Filtration Rate 23 ML/MIN Urine Color YELLOW Urine Turbidity CLEAR Urine pH 5.5 Urine Specific [place] 1.010 Urine Protein NEG mg/dL Urine Glucose (UA) NEG mg/dL Urine Ketones NEG mg/dL Urine Occult Blood TRACE Urine Nitrite NEG Urine Bilirubin NEG Urine Urobilinogen 0.2 MG/DL Urine Leukocyte Esterase NEG Urine RBC 0-3 /hpf Urine WBC 3-5 /hpf Urine Squamous Epithelial Cells 0-5 /hpf Microscopic Urinalysis Comment CULT NOT INDICATED MDM Medical Decision Making Medical Screen Exam Complete: Yes Emergency Medical Condition: Yes Medical Record Reviewed: Yes Differential Diagnosis Seroma, postop wound infection, postop wound drainage Narrative Course 12:11 AM have ordered for some blood test and a CAT scan of the abdomen and pelvis with contrast to see if patient has seroma or large fluid collection underneath. Wound culture has been collected and sent. Plan would be to call Dr. Garcia or on-call urology and discussed the case once test results are back. Case most probably would be signed over to the oncoming ER physician. Procedures EKG Prior to Arrival: Jumana Almeida MD Nov 16, 2017 23:56
[2017-11-17 00:06] VITALS: O2SAT 97
[2017-11-17] MEDS ORDERED: SODIUM CHLORIDE 0.9% FLUSH 10 ML FLUSH IV FLUSH PRN (00:15)
[2017-11-17 00:43] LABS: AUTOMATED NEUTROPHIL # 6.5 TH/MM3 (1.8-7.7); BASOPHIL % 0.2 % (0.0-2.0); EOSINOPHIL # 0.7 TH/MM3 (0-0.4); EOSINOPHIL % 6.7 % (0.0-4.0); HEMATOCRIT 27.9 % (35.0-46.0); HEMOGLOBIN 9.6 GM/DL (11.6-15.3); LYMPH % 20.1 % (9.0-44.0); LYMPHOCYTE # 2.1 TH/MM3 (1.0-4.8); MEAN CELL VOLUME 95.6 FL (80.0-100.0); MEAN CORPUSCULAR HGB CONC 34.5 % (32.0-36.0); MEAN PLATELET VOLUME 7.6 FL (7.0-11.0); MONO % 10.1 % (0.0-8.0); MONOCYTE # 1.1 TH/MM3 (0-0.9); NEUT % 62.9 % (16.0-70.0); PLATELET COUNT 307 TH/MM3 (150-450); RED BLOOD COUNT 2.92 MIL/MM3 (4.00-5.30); RED CELL DISTRIBUTION WIDTH 15.5 % (11.6-17.2); WHITE BLOOD COUNT 10.4 TH/MM3 (4.0-11.0)
[2017-11-17 00:56] LABS: CALCIUM 8.4 MG/DL (8.5-10.1)
[2017-11-17 00:57] LABS: BICARBONATE 22.8 MEQ/L (21.0-32.0)
[2017-11-17 01:00] LABS: CREATININE 2.1 MG/DL (0.50-1.00)
--- NOTE | 2017-11-17 01:08 | PD ---
Physical Exam Date Seen by Provider: Nov 17, 2017 Time Seen by Provider: 01:06 Narrative Accepted transfer of care from Dr. Christy GENERAL: Well-developed nourished female no acute distress no respiratory distress GASTROINTESTINAL: Abdomen soft, non-tender, nondistended. Right-sided abdominal wall incision with dressing in place dressing removed actively no drainage occurring however dressing and clothing indicates recent serosanguineous drainage from site. No redness no induration no purulent drainage. Data Data Last Documented VS Vital Signs Date Time Temp Pulse Resp B/P (MAP) Pulse Ox O2 Delivery O2 Flow Rate FiO2 11/17/17 02:51 84 18 196/87 (123) 97 Room Air 11/16/17 23:36 98.1 Orders Orders Basic Metabolic Panel (Bmp) (11/17/17 00:01) Complete Blood Count With Diff (11/17/17 00:01) Iv Access Insert/Monitor (11/17/17 00:01) Ecg Monitoring (11/17/17 00:01) Oximetry (11/17/17 00:01) Sodium Chloride 0.9% Flush (Ns Flush) (11/17/17 00:15) Wound Culture And Gram Stain (11/17/17 00:01) Urinalysis - C+S If Indicated (11/17/17 00:03) Type And Screen (11/17/17 00:03) ^ Saline Lock (11/17/17 00:06) Ct Abd/Pel W/O Iv Contrast (11/17/17 ) Clonidine (Catapres) (11/17/17 03:00) Labs Laboratory Tests Test 11/17/17 00:20 11/17/17 02:15 White Blood Count 10.4 TH/MM3 Red Blood Count 2.92 MIL/MM3 Hemoglobin 9.6 GM/DL Hematocrit 27.9 % Mean Corpuscular Volume 95.6 FL Mean Corpuscular Hemoglobin 33.0 PG Mean Corpuscular Hemoglobin Concent 34.5 % Red Cell Distribution Width 15.5 % Platelet Count 307 TH/MM3 Mean Platelet Volume 7.6 FL Neutrophils (%) (Auto) 62.9 % Lymphocytes (%) (Auto) 20.1 % Monocytes (%) (Auto) 10.1 % Eosinophils (%) (Auto) 6.7 % Basophils (%) (Auto) 0.2 % Neutrophils # (Auto) 6.5 TH/MM3 Lymphocytes # (Auto) 2.1 TH/MM3 Monocytes # (Auto) 1.1 TH/MM3 Eosinophils # (Auto) 0.7 TH/MM3 Basophils # (Auto) 0.0 TH/MM3 CBC Comment DIFF FINAL Differential Comment Blood Urea Nitrogen 23 MG/DL Creatinine 2.10 MG/DL Random Glucose 103 MG/DL Calcium Level 8.4 MG/DL Sodium Level 142 MEQ/L Potassium Level 4.0 MEQ/L Chloride Level 110 MEQ/L Carbon Dioxide Level 22.8 MEQ/L Anion Gap 9 MEQ/L Estimat Glomerular Filtration Rate 23 ML/MIN Urine Color YELLOW Urine Turbidity CLEAR Urine pH 5.5 Urine Specific [place] 1.010 Urine Protein NEG mg/dL Urine Glucose (UA) NEG mg/dL Urine Ketones NEG mg/dL Urine Occult Blood TRACE Urine Nitrite NEG Urine Bilirubin NEG Urine Urobilinogen 0.2 MG/DL Urine Leukocyte Esterase NEG Urine RBC 0-3 /hpf Urine WBC 3-5 /hpf Urine Squamous Epithelial Cells 0-5 /hpf Microscopic Urinalysis Comment CULT NOT INDICATED [facility] Medical Record Reviewed: Yes Supervised Visit with [id number]: No Interpretation(s) UA: wnl Last Impressions Abdomen/Pelvis CT 11/17/17 0000 Signed Impressions: CONCLUSION: 1. Status post right nephrectomy. 2. 7.9 cm hematoma/seroma in the right anterior lateral subcutaneous fat. Ther e is surrounding induration and fairly extensive subcutaneous emphysema. There is a small amount of retroperitoneal air seen in the right iliac fossa region. 3. Bilateral mild pleural effusions. 4. 2. Hyperdense masses seen in the left kidney likely related to hyperdense h emorrhagic or proteinaceous cyst. 5. Small amount of air within the urinary bladder. CBC & BMP Diagram 11/17/17 00:20 Calcium Level 8.4 L Vital Signs Date Time Temp Pulse Resp B/P (MAP) Pulse Ox O2 Delivery O2 Flow Rate FiO2 11/17/17 02:26 84 18 184/86 (118) 97 Room Air 11/17/17 00:06 97 Room Air 11/16/17 23:36 98.1 79 17 199/89 (125) 97 Differential Diagnosis Accepted transfer of care from Dr. Christy; please refer to her dictation Narrative Course Accepted transfer of care from Dr. Christy; follow up labs CT and disposition; new dressing applied since arrival to the emergency department is dry the incision site looks clean without redness induration and no active drainage. CT reveals evidence of fluid collection and subcu gas; CBC is automated differential total white cell count is normal remains anemic hemoglobin is 9.6 this is slightly decreased from 9.9 at time of discharge; metabolic panel shows improved renal function UA wnl Reassessment of wound dressing remains dry at 2:50 AM no recurrence of drainage serosanguineous or otherwise noted on dressing. call placed to Urologist Physician Communication Physician Communication call place urology discussed with Dr Richard --follow up [address] Garcia Diagnosis Primary Impression: Seroma Additional Impressions: Anemia Renal insufficiency HTN (hypertension) Referrals: Enoc Garcia MD 1 day Patient Instructions: General Instructions Additional Instruction: Continue to keep wound site clean and dry change dressings with frequency as needed Follow-up 1 day with your urologist Dr. Garcia Monitor temperature for fever take ibuprofen/Advil/Motrin as tolerated as needed for fever 100.4F or greater Return to the emergency department for any concerns or change in condition Med/Other Pt SpecificInfo: No Change to Meds Disposition: 01 DISCHARGE HOME Condition: Stable Ludmila Driscoll MD Nov 17, 2017 01:08
--- NOTE | 2017-11-17 01:43 | RADRPT ---
EXAM DATE: 11/17/2017 1:27 AM EDT AGE/SEX: 66 years / Female INDICATIONS: Surgical wound drainage following right nephrectomy. CLINICAL DATA: This is the patient's initial encounter. Patient reports that signs and symptoms have been present for 1 day and indicates a pain score of 3/10. MEDICAL/SURGICAL HISTORY: Hypertension. Gastroesophageal reflux disease. Right kidney mass. Nephrectomy, right. Appendectomy. RADIATION DOSE: 28.82 CTDI (mGy) ; Patient body habitus COMPARISON: No prior exams available for comparison. TECHNIQUE: Multiple contiguous axial images were obtained through the abdomen. Images were obtained using multiple row detector helical technique. Using dose reduction techniques, radiation dose was ke pt as low as reasonably achievable to obtain optimal diagnostic quality images. FINDINGS: Lower Lungs: There are mild bilateral pleural effusions being greater on the left. There are some pat fabian density identified at the lower lungs being most prominent at the right lower lobe likely related to atelectasis or mild consolidation. Liver: The liver has a homogeneous density without space-occupying lesion. There is no dilation of th e biliary tree. The patient is status post cholecystectomy. Spleen: Homogeneous density without enlargement. Pancreas: Unremarkable without mass or calcification. Kidneys: The patient is status post right nephrectomy. No significant hematoma is seen in the right renal fossa. There is a 2.3 cm hyperdense mass seen in the central left kidney and a 1.1 cm hyperdens e mass seen at the inferior lateral left kidney likely related to hyperdense hemorrhagic or proteinac eous cysts. Adrenal Glands: Unremarkable. Aorta: Arterial calcifications are seen. No effusion is seen. Bowel/Mesentery: Numerous diverticula are seen in the sigmoid region. Abdominal Wall: There is a 7.9 x 4.8 x 5.5 cm mass seen in the anterior lateral right subcutaneous f at likely related to a hematoma/seroma. There is some induration in the surrounding fat presumably fr om postoperative change. There is extensive air within the subcutaneous fat. This extends into the up per abdomen anteriorly and posteriorly on the right. It extends through the left anterolateral subcut aneous fat at the upper left abdomen. There is subcutaneous air extending down to the pelvic soft tis sues anteriorly on the right side. Retroperitoneum: There is a small amount of air is seen within the right right perineal fat anterior to the right iliac fossa. Bladder: There is a small amount of air within the urinary bladder. This should be correlated with a ny recent intervention/catheterization. Reproductive Organs: The patient is status post hysterectomy. Inguinal: The inguinal region is unremarkable without evidence of adenopathy. Bony Structures: There is degenerative change in the lumbar spine. CONCLUSION: 1. Status post right nephrectomy. 2. 7.9 cm hematoma/seroma in the right anterior lateral subcutaneous fat. There is surrounding indur ation and fairly extensive subcutaneous emphysema. There is a small amount of retroperitoneal air see n in the right iliac fossa region. 3. Bilateral mild pleural effusions. 4. 2. Hyperdense masses seen in the left kidney likely related to hyperdense hemorrhagic or proteina ceous cyst. 5. Small amount of air within the urinary bladder. Electronically signed by: Chris Gonzalez MD 11/17/2017 1:42 AM EDT
[2017-11-17 02:26] VITALS: BP 184/86; PULSE 84; RESP 18; O2SAT 97
[2017-11-17 02:31] LABS: BILIRUBIN, URINE NEG (NEG); BLOOD, URINE TRACE (NEG); GLUCOSE,URINE NEG (NEG); KETONE, URINE NEG (NEG); NITRITE,URINE NEG (NEG); PH, URINE 5.5 (5.0-8.5); URINE COLOR YELLOW (YELLW/STRAW); URINE LEUKOCYTE ESTERASE NEG (NEG)
[2017-11-17 02:42] LABS: RBC, URINE 0-3 /hpf (0-3); SQUAMOUS EPITHELIAL CELL URINE 0-5 /hpf (0-5)
[2017-11-17 02:51] VITALS: BP 196/87; PULSE 84; RESP 18; O2SAT 97
[2017-11-17] MEDS ORDERED: cloNIDine HCL 0.1 MG TAB PO ONE (03:00)
[2017-11-17 03:55] VITALS: BP 180/85; PULSE 82; RESP 18; O2SAT 97
== END 2017-11-17 03:56 | disposition home or self-care (01) ==
LOC: PHED 23:33
DX: L76.34 Postprocedural seroma of skin and subcutaneous tissue following other procedure (principal); Y83.8 Other surgical procedures as the cause of abnormal reaction of the patient, or of later complication, without mention of misadventure at the time of the procedure; B96.5 Pseudomonas (aeruginosa) (mallei) (pseudomallei) as the cause of diseases classified elsewhere; B96.89 Other specified bacterial agents as the cause of diseases classified elsewhere; D64.9 Anemia, unspecified; N28.9 Disorder of kidney and ureter, unspecified; I10 Essential (primary) hypertension; F41.9 Anxiety disorder, unspecified; F32.9 Major depressive disorder, single episode, unspecified; E78.00 Pure hypercholesterolemia, unspecified; G47.30 Sleep apnea, unspecified; K21.9 Gastro-esophageal reflux disease without esophagitis; G62.9 Polyneuropathy, unspecified; E07.9 Disorder of thyroid, unspecified; I05.0 Rheumatic mitral stenosis; Z90.5 Acquired absence of kidney; Z85.528 Personal history of other malignant neoplasm of kidney; Z79.899 Other long term (current) drug therapy
CPT/HCPCS: 74176; 80048; 81001; 85025; 86850; 86900; 86901; 87070; 87077; 87186